=== PATIENT | male | born 1990 | race Two or more races ===

== ENCOUNTER 2016-11-16 22:08 | Emergency (ER) | payer SELFPAY ==
[~2016-11-16] VITALS: Ht 172.7 cm; Wt 68.0 kg
[2016-11-16 22:38] LABS: BASOPHILS # (AUTO) 0.1 /CMM (0.0-0.2); BASOPHILS % (AUTO) 1.4 % (0.0-2.0); DIFF TOTAL % 100 %; EOSINOPHILS # (AUTO) 0.1 /CMM (0.0-0.7); EOSINOPHILS % (AUTO) 3.5 % (0.0-6.0); HEMATOCRIT 42 % (39-51); LYMPHOCYTES # (AUTO) 1.9 /CMM (0.8-4.8); LYMPHOCYTES % (AUTO) 49.8 % (20.0-44.0); MEAN CORPUSCULAR HEMOGLOBIN 30 PG (26.0-33.0); MEAN CORPUSCULAR HGB CONC 33 g/dl (31.0-36.0); MEAN CORPUSCULAR VOLUME 89 fL (80-96); MONOCYTES # (AUTO) 0.6 /CMM (0.1-1.30); MONOCYTES % (AUTO) 15.1 % (2.0-12.0); NEUTROPHILS # (AUTO) 1.2 /CMM (1.8-8.9); NEUTROPHILS % (AUTO) 30.2 % (43.0-81.0); PLATELET COUNT (AUTO) 211 /CMM (150-450); RED BLOOD CELL COUNT(AUTO) 4.74 MIL/uL (4.5-6.0); WHITE BLOOD COUNT (AUTO) 3.9 K/uL (4.3-11.0)
[2016-11-16 22:46] LABS: ANION GAP 7 (5-14); CALCIUM, SERUM 8.9 mg/dL (8.5-10.1); CARBON DIOXIDE 32 mmol/L (21-32); CHLORIDE 103 mmol/L (98-107); GFR 90 mL/min (>60); GLUCOSE 76 mg/dL (74-106); POTASSIUM 3.8 mmol/L (3.5-5.1); SODIUM SERUM 138 mmol/L (136-145); UREA NITROGEN, BLOOD 15 mg/dL (7-18)
[2016-11-16 22:53] LABS: ALANINE AMINOTRANSFERASE 25 U/L (12-78); ALBUMIN 3.9 g/dL (3.4-5.0); ASPARTATE AMINOTRANSFERASE 18 U/L (15-37); BILIRUBIN,DIRECT 0.2 mg/dL (0.0-0.2); BILIRUBIN,TOTAL 0.7 mg/dL (0.2-1.0); INDIRECT BILIRUBIN 0.5 mg/dL (0.0-1.1); TOTAL PROTEIN, SERUM 6.9 g/dL (6.4-8.2)
[2016-11-16 22:53] LABS: ADD UA MICROSCOPIC YES; KETONES,URINE TRACE (NEGATIVE); LEUKOCYTE ESTERASE ,URINE NEGATIVE (NEGATIVE)
[2016-11-16 22:54] LABS: ACETAMINOPHEN 0 ug/ml (10-30); SALICYLATE 2.1 mg/dL (2.8-20.0)
[2016-11-16 22:55] LABS: PHENCYCLIDINE SCREEN,URINE NEGATIVE (NEGATIVE)
[2016-11-16 22:58] LABS: CANNABINOID, URINE POSITIVE (NEGATIVE)
[2016-11-16 22:59] LABS: ADD URINE CULTURE NO; RBC,URINE NONE SEEN /HPF (0-2)
[2016-11-17 01:35] LABS: BAND % (MANUAL) 2 % (0.0-5.0); BASOPHILS % (MANUAL) 0 % (0.0-2.0); EOSINOPHILS % (MANUAL) 7 % (0-4); LYMPHOCYTES % (MANUAL) 50 % (16-48); PLATELET ESTIMATE ADEQUATE; RBC MORPHOLOGY COMMENT NORMAL RBC MORPH
[2016-11-17 06:53] VITALS: BP 102/68
== END 2016-11-17 06:54 | disposition home or self-care (01) ==
LOC: ER 22:10
DX: F19.10 Other psychoactive substance abuse, uncomplicated (principal)
CPT/HCPCS: 36415; 80048-TC; 80076-TC; 80305; 81000-TC; 85025-TC; A4606; G6038-TC; G6039-TC; G6040-TC; Z7610

== ENCOUNTER 2016-11-20 13:16 | Emergency (ER) | payer SELFPAY ==
[~2016-11-20] VITALS: Ht 172.7 cm; Wt 56.7 kg
[2016-11-20] MEDS ORDERED: IV NS 0.9% 1,000 ML BAG IV ONE (13:30)
[2016-11-20 13:45] LABS: BASOPHILS % (AUTO) 0.8 % (0.0-2.0); DIFF TOTAL % 100 %; EOSINOPHILS % (AUTO) 0.2 % (0.0-6.0); HEMATOCRIT 46 % (39-51); HEMOGLOBIN 15.1 g/dL (13.5-17.5); LYMPHOCYTES # (AUTO) 0.8 /CMM (0.8-4.8); LYMPHOCYTES % (AUTO) 20.7 % (20.0-44.0); MEAN CORPUSCULAR HEMOGLOBIN 30 PG (26.0-33.0); MEAN CORPUSCULAR HGB CONC 33 g/dl (31.0-36.0); MEAN CORPUSCULAR VOLUME 89 fL (80-96); MONOCYTES # (AUTO) 0.2 /CMM (0.1-1.30); MONOCYTES % (AUTO) 3.9 % (2.0-12.0); NEUTROPHILS # (AUTO) 3.1 /CMM (1.8-8.9); NEUTROPHILS % (AUTO) 74.4 % (43.0-81.0); PLATELET COUNT (AUTO) 225 /CMM (150-450); RED BLOOD CELL COUNT(AUTO) 5.13 MIL/uL (4.5-6.0); WHITE BLOOD COUNT (AUTO) 4.1 K/uL (4.3-11.0)
[2016-11-20 13:53] LABS: ANION GAP 25 (5-14); CALCIUM, SERUM 9.5 mg/dL (8.5-10.1); CARBON DIOXIDE 18 mmol/L (21-32); CHLORIDE 103 mmol/L (98-107); CREATININE 1.4 mg/dL (0.6-1.3); GFR 61 mL/min (>60); GLUCOSE 153 mg/dL (74-106); POTASSIUM 4.3 mmol/L (3.5-5.1); SODIUM SERUM 141 mmol/L (136-145); UREA NITROGEN, BLOOD 15 mg/dL (7-18)
[2016-11-20 14:03] LABS: ALANINE AMINOTRANSFERASE 23 U/L (12-78); ALBUMIN 4.2 g/dL (3.4-5.0); ASPARTATE AMINOTRANSFERASE 19 U/L (15-37); BILIRUBIN,DIRECT 0.1 mg/dL (0.0-0.2); BILIRUBIN,TOTAL 0.5 mg/dL (0.2-1.0); INDIRECT BILIRUBIN 0.4 mg/dL (0.0-1.1); SALICYLATE 3.2 mg/dL (2.8-20.0); TOTAL PROTEIN, SERUM 7.5 g/dL (6.4-8.2)
[2016-11-20 14:05] LABS: ACETAMINOPHEN 0 ug/ml (10-30)
[2016-11-20] MEDS ORDERED: IV SET PRIMARY 1 EA INFUS.SET MC ONE (14:21)
[2016-11-20] MEDS ORDERED: IV NS 0.9% 1,000 ML ONE (14:21)
[2016-11-20 14:56] VITALS: BP 145/45
== END 2016-11-20 14:57 | disposition home or self-care (01) ==
LOC: ER 13:19
DX: S00.83XA Contusion of other part of head, initial encounter (principal); W18.30XA Fall on same level, unspecified, initial encounter; Y93.89 Activity, other specified; Y92.89 Other specified places as the place of occurrence of the external cause; Y99.8 Other external cause status
CPT/HCPCS: 36415; 70450-TC; 72125-TC; 80048-TC; 80076-TC; 85025-TC; A4606; A6402; G6038-TC; G6039-TC; G6040-TC; J7030; Z7610

== ENCOUNTER 2017-05-20 09:06 | Emergency (ER) | payer SELFPAY ==
[~2017-05-20] VITALS: Ht 167.6 cm; Wt 68.0 kg
--- NOTE | 2017-05-20 09:06 | NUR ---
BBRA 102 FROM MALL BENCH FOUND ALOC, UNKNOWN DRUG USE. GIVEN NARCAN IN FIELD. PT IS NOT ALERT, RESPONDS TO PAINFUL STIMULI, VSS. PT PLACED IN GOWN AND MONITOR. DR SINCLAIR AT BEDSIDE FOR EVAL.
[2017-05-20] MEDS ORDERED: AMMONIA NASAL INHALATION 1 EA PACK NAS ONE ×2 (09:13→09:30)
[2017-05-20] MEDS ORDERED: NALOXONE PREFILLED SYRINGE 2 MG/2 ML SYRINGE ONE (09:15)
[2017-05-20] MEDS ORDERED: NALOXONE HCL 0.4 MG/ML AMPUL IV ONE (09:30)
[2017-05-20] MEDS ORDERED: IV NS 0.9% 1,000 ML BAG IV ONE (09:30)
[2017-05-20 09:34] LABS: BASOPHILS # (AUTO) 0.1 /CMM (0.0-0.2); BASOPHILS % (AUTO) 0.7 % (0.0-2.0); EOSINOPHILS # (AUTO) 0.1 /CMM (0.0-0.7); EOSINOPHILS % (AUTO) 0.9 % (0.0-6.0); HEMATOCRIT 46 % (39-51); HEMOGLOBIN 14.8 g/dL (13.5-17.5); LYMPHOCYTES # (AUTO) 1.4 /CMM (0.8-4.8); LYMPHOCYTES % (AUTO) 18.4 % (20.0-44.0); MEAN CORPUSCULAR HEMOGLOBIN 29 PG (26.0-33.0); MEAN CORPUSCULAR HGB CONC 33 g/dl (31.0-36.0); MEAN CORPUSCULAR VOLUME 89 fL (80-96); MONOCYTES # (AUTO) 0.7 /CMM (0.1-1.30); MONOCYTES % (AUTO) 10.1 % (2.0-12.0); NEUTROPHILS # (AUTO) 5.1 /CMM (1.8-8.9); NEUTROPHILS % (AUTO) 69.9 % (43.0-81.0); PLATELET COUNT (AUTO) 238 /CMM (150-450); RDW COEFFICIENT OF VARIATION 13.2 (11.5-15.0); RED BLOOD CELL COUNT(AUTO) 5.14 MIL/uL (4.5-6.0); WHITE BLOOD COUNT (AUTO) 7.4 K/uL (4.3-11.0)
[2017-05-20 09:37] LABS: APPEARANCE,URINE CLEAR (CLEAR); BILIRUBIN,URINE 1+ (NEGATIVE); BLOOD, URINE 1+ Ery/uL (NEGATIVE); COLOR,URINE DARK YELLO (YELLOW); KETONES,URINE TRACE (NEGATIVE); LEUKOCYTE ESTERASE ,URINE NEGATIVE (NEGATIVE); NITRITE, URINE NEGATIVE (NEGATIVE); PH,URINE 5.5 (5.0-8.0); PROTEIN,URINE NEGATIVE (NEGATIVE); UGLUCOSE NEGATIVE (NEGATIVE); UROBILINOGEN,URINE 0.2 EU/dL (0.2)
[2017-05-20 09:43] LABS: BACTERIA,URINE Rare /HPF (None Seen); WBC,URINE NONE SEEN /HPF (0-3)
[2017-05-20 09:44] LABS: CALCIUM, SERUM 9.1 mg/dL (8.5-10.1); CARBON DIOXIDE 26 mmol/L (21-32); CHLORIDE 105 mmol/L (98-107); GLUCOSE 98 mg/dL (74-106); POTASSIUM 4.3 mmol/L (3.5-5.1); SODIUM SERUM 141 mmol/L (136-145); UREA NITROGEN, BLOOD 18 mg/dL (7-18)
[2017-05-20 09:49] LABS: MUCUS,URINE Moderate /LPF (None Seen); SQUAMOUS EPITHELIAL CELL,UR None Seen /HPF (None Seen)
[2017-05-20 09:50] LABS: ALANINE AMINOTRANSFERASE 28 U/L (12-78); ALBUMIN 4.2 g/dL (3.4-5.0); ALCOHOL, BLOOD < 3 mg/dL (0-0); ALKALINE PHOSPHATASE 67 U/L (46-116); ASPARTATE AMINOTRANSFERASE 25 U/L (15-37); BILIRUBIN,DIRECT 0.1 mg/dL (0.0-0.2); SALICYLATE 3.5 mg/dL (2.8-20.0)
[2017-05-20 09:51] LABS: ACETAMINOPHEN 0 ug/ml (10-30)
--- NOTE | 2017-05-20 12:00 | NUR ---
REMOVED RESTRAINTS PT STABLE NOW NOT AGITATED.
--- NOTE | 2017-05-20 12:54 | NUR ---
CALLED [facility] CLINICIAN FOR EVAL ETA 1 HOUR
[2017-05-20 16:40] VITALS: BP 101/71
--- NOTE | 2017-05-20 16:40 | NUR ---
Patient discharged to home in stable condition. Written and verbal after care instructions given. Patient verbalizes understanding of instruction.
--- NOTE | 2017-05-20 16:40 | NUR ---
IV removed. Catheter intact and site benign. Pressure and 4x4 applied to site. No bleeding noted.
== END 2017-05-20 16:41 | disposition home or self-care (01) ==
LOC: ER 09:08
DX: R41.82 Altered mental status, unspecified (principal); F11.10 Opioid abuse, uncomplicated; F15.10 Other stimulant abuse, uncomplicated; F12.10 Cannabis abuse, uncomplicated; F19.10 Other psychoactive substance abuse, uncomplicated; R79.89 Other specified abnormal findings of blood chemistry
CPT/HCPCS: 36415; 70450-TC; 71010-TC; 80048-TC; 80076-TC; 80305; 81000-TC; 82962-TC; 85025-TC; A4606; G0480; J2310; J7030; Z7610

== ENCOUNTER 2018-12-30 10:53 | Emergency (ER) | payer OTHER ==
[~2018-12-30] VITALS: Ht 175.3 cm; Wt 65.8 kg
[2018-12-30 10:56] VITALS: BP 115/88
--- NOTE | 2018-12-30 11:15 | NUR ---
MELISSA received a call from NOY García requesting for social service consult for the pt. for homelessness. Pt. is a 28 year old male who was brought in by rescue ambulance from [facility] for an overdose. MELISSA met with pt. bedside with NOY García. Pt. is alert and oriented x 3. Pt. is very fidgety and kept putting his belongings in his bag. Pt. was cooperative with SW during the assessment. Pt. is ambulatory. Pt. states he is homeless and has been couch surfing at friend's apartments. Pt. is a heroin user and last used this morning. Pt. denies any other drug use. SW offered pt. drug resources and homeless correction resources, however pt. declined all resources. Pt. appeared to be in a hurry to leave. Pt. was given a sandwich and juice. Pt. informed SW he is having a friend pick him up. Homeless Patient Waiver form was signed by the pt. and placed in pt's chart. No other social service needs are requested at this time.
--- NOTE | 2018-12-30 11:17 | NUR ---
Patient given written and verbal discharge instructions. Patient verbalizes understanding of instructions. Patient is ambulatory with steady gait. Refuses offer of homeless resources. Patient discharged to home in stable condition. Patient verbalizes understanding of instruction.
== END 2018-12-30 11:20 | disposition home or self-care (01) ==
LOC: ER 10:53
DX: F19.10 Other psychoactive substance abuse, uncomplicated (principal)

== ENCOUNTER 2019-04-20 07:35 | Emergency (ER) | payer OTHER ==
[~2019-04-20] VITALS: Ht 167.6 cm; Wt 63.5 kg
[2019-04-20] MEDS ORDERED: DEXAMETHASONE SOD PHOSPHATE 10 MG/ML VIAL IM ONE (08:00)
[2019-04-20] MEDS ORDERED: DEXAMETHASONE SOD PHOSPHATE 10 MG/ML VIAL ONE (08:01)
[2019-04-20 09:21] VITALS: BP 113/67
== END 2019-04-20 09:22 | disposition home or self-care (01) ==
LOC: ER 07:35
DX: J02.9 Acute pharyngitis, unspecified (principal); R09.82 Postnasal drip
CPT/HCPCS: 87070; 87880; 96372; 99283; J1100; 86403-TC

== ENCOUNTER 2021-03-04 08:15 | Emergency (ER) | payer OTHER ==
[~2021-03-04] VITALS: Ht 167.6 cm; Wt 68.0 kg
[2021-03-04 08:19] VITALS: BP 120/68
--- NOTE | 2021-03-04 08:26 | NUR ---
Pt now Awake and Alert - refuses any Intervention at this time states "what does it matter if I was sleeping in a bench. Im homeless got to sleep somewhere." Denies any drug/alcohol use. Appropriate/responsive. Conversant and follows commands. GCS-15 moves all extremities purposefully Ambulatory Gait steady. Dr Downs saw and examined pt. Eloped prior to aftercare instructions
== END 2021-03-04 08:30 | disposition home or self-care (01) ==
LOC: ER 08:20
DX: Z00.8 Encounter for other general examination (principal)

== ENCOUNTER 2021-05-16 04:56 | Emergency (ER) | payer OTHER ==
[~2021-05-16] VITALS: Ht 167.6 cm; Wt 67.1 kg
--- NOTE | 2021-05-16 05:20 | NUR ---
PT AAOX4. BIBRA FOUND ON STREETS ON THE FLOOR "ALTETED." PLACED IN BED 11 ON MONITOR AND PULSE OX. AWAITING ER MD FOR EVAL AND ORDERS. PT AWAKE.
--- NOTE | 2021-05-16 05:35 | NUR ---
BROUGHT TO CT AND BACK
[2021-05-16] MEDS ORDERED: LIDOCAINE 2% JEL UROJET 10 ML MM ONE (06:09)
--- NOTE | 2021-05-16 06:17 | NUR ---
Manufacturing Coordinator at bedside.
--- NOTE | 2021-05-16 06:17 | NUR ---
FR butler catheter inserted per sterile protocal. Urine collected, sent to lab.
[2021-05-16 06:35] LABS: BASOPHILS % (AUTO) 0.8 % (0.0-2.0); EOSINOPHILS % (AUTO) 1.5 % (0.0-6.0); HEMATOCRIT 37 % (39-51); HEMOGLOBIN 12.4 g/dL (13.5-17.5); LYMPHOCYTES # (AUTO) 1.6 K/uL (0.8-4.8); LYMPHOCYTES % (AUTO) 40.9 % (20.0-44.0); MEAN CORPUSCULAR HGB CONC 33 g/dl (31.0-36.0); MEAN CORPUSCULAR VOLUME 88 fL (80-96); MONOCYTES # (AUTO) 0.3 K/uL (0.1-1.30); MONOCYTES % (AUTO) 8.2 % (2.0-12.0); NEUTROPHILS # (AUTO) 1.9 K/uL (1.8-8.9); NEUTROPHILS % (AUTO) 48.6 % (43.0-81.0); PLATELET COUNT (AUTO) 260 K/uL (150-450); RED BLOOD CELL COUNT(AUTO) 4.19 MIL/uL (4.5-6.0); WHITE BLOOD COUNT (AUTO) 3.9 K/uL (4.3-11.0)
[2021-05-16 06:37] LABS: BILIRUBIN,URINE NEGATIVE (NEGATIVE); COLOR,URINE YELLOW (YELLOW); LEUKOCYTE ESTERASE ,URINE NEGATIVE (NEGATIVE); NITRITE, URINE NEGATIVE (NEGATIVE); PROTEIN,URINE NEGATIVE (NEGATIVE); UGLUCOSE NEGATIVE (NEGATIVE); UROBILINOGEN,URINE 0.2 EU/dL (0.2)
[2021-05-16 06:51] LABS: ACETAMINOPHEN 0 ug/ml (10-30); ALANINE AMINOTRANSFERASE 28 U/L (12-78); ALBUMIN 3.2 g/dL (3.4-5.0); ALCOHOL, BLOOD < 3 mg/dL (0-0); ALKALINE PHOSPHATASE 61 U/L (46-116); ASPARTATE AMINOTRANSFERASE 25 U/L (15-37); BILIRUBIN,DIRECT 0.1 mg/dL (0.0-0.2); BILIRUBIN,TOTAL 0.3 mg/dL (0.2-1.0); CALCIUM, SERUM 8.5 mg/dL (8.5-10.1); CARBON DIOXIDE 28 mmol/L (21-32); CHLORIDE 105 mmol/L (98-107); CREATININE 0.9 mg/dL (0.6-1.3); GLUCOSE 95 mg/dL (74-106); POTASSIUM 3.6 mmol/L (3.5-5.1); SODIUM SERUM 143 mmol/L (136-145); TOTAL PROTEIN, SERUM 6.7 g/dL (6.4-8.2); UREA NITROGEN, BLOOD 18 mg/dL (7-18)
--- NOTE | 2021-05-16 07:24 | NUR ---
ASSESSED PT ON BED ASLEEP EASILY AROUSABLE, NOT IN RESPIRATORY DISTRESS, V/S STABLE, KEPT RESTED AND COMFORTABLE. WILL CONTINUE TO MONITOR.
--- NOTE | 2021-05-16 11:05 | NUR ---
"Contingents Supervisor consult: student services counselor consult requested for homelessness. Patient is a 30-year-old, male. SW met with patient at his bedside in the emergency department. Patient was alert and oriented x3. Patient was unable to recall the situation which brought him to the hospital. Patient was calm and resting. Per chart, patient was brought in by ambulance from the streets on 05/16/21 and presented altered. Patient stated that he is currently homeless and has been homeless for the last 5 years. Patient reported that he has been living on the street. Patient stated that he has some support from his friends and family. Patient stated that he currently has no source of income. SW assessed patients history of substance use and patient reported no history or current substance use. SW assessed patients history of mental illness and patient denied history. Patient denied suicidal or homicidal ideation. SW offered the patient homeless resources. Patient accepted the resources and thanked SW. Patient signed the homeless waiver and SW filed waiver in the patients chart. SW discussed discharge plans with the patient. Patient stated he will return to his prior living arrangement on the street. PLAN: Patient stated he will return to his prior living arrangement on the street. No further SS intervention at this time, however, SW will remain available as needed. RESOURCES: Year-round shelters: [place] [address] [phone] ; [facility] [place] [address] [place] [address]; [facility] [facility] [address] SPA 4 | [facility] [place] Provider: First to Serve Address: [address], [address] # of Beds: 48 Population Served: [facility] Provider: First to Serve Address: [address] [facility], [address] # of Beds: 73 Population Served: [facility] 6 | [facility] Provider: Home at Last Address: [address] [facility], [address] # of Beds: 63 Population Served: [facility] 3 | [facility] Provider: [facility] [place] Address: [address] [place], [place] [address] # of Beds: 75 Population Served: [place] SPA 8 | [facility] Provider: [facility] [place] Address: [address] [facility], [address] # of Beds: 80 Population Served: [place] SPA 1 | [facility] Provider: [facility] [place] Address: [address] [place] [address], [address] # of Beds: 85 Population Served: [place] SPA 2 | [facility] Provider: [facility] Address: Confidential (please call for location) # of Beds: 52 Population Served: [facility] S[facility] 4 | [facility] Provider: Ja[facility] Address: [address] [place] [address] # of Beds: 49 Population Served: [facility] Provider: First To Serve Address: [address] [place] [address] # of Beds: 27 Population Served: [facility] Hygiene: [facility]: [address] [facility] ; [place] [facility] [address] [facility] ; [facility] [address] [facility] . Food Resources: [place] [facility] at [facility]- [address] [facility]; Meet Each Need with [facility] ([facility]) [address] [facility]; [facility] [address] [facility]; [facility] [address]658 [facility]. Mental Health resources provided: [facility] [address] [place] [address] ; [facility] [place] [address] [facility] [address], [place] [address] ; [facility] [address] [facility] [place] [address] ; [facility] [address] [place], [place] [address] Healthcare Clinics: [facility] [address] [facility] [address] [place]. [place] ; [facility] [address] [facility] [address] [place] [address]; [facility] [address] [facility] [phone] Counseling--Outpatient [facility] [address] [facility] [address] [place], [place] [address] (Specializes in in-depth psychotherapy for emotional distress: anxiety, depression, interpersonal conflicts, life transitions, childhood abuse) PSYCHIATRIC OUTPATIENT SERVICES [facility] Partial Hospitalization and Intensive Outpatient Program (Managed Care and [place] Only) [address] [facility] 418478 [facility] Partial Hospitalization and Outpatient Program [address] [facility] [place], [place] [id number] [facility] Partial Hospitalization and Outpatient Program [address] [facility] [place], [place] [id number] [facility] Mental Health [facility] [address] [facility]. [address] [place], [place] [address] [facility] Partial Hospitalization and Outpatient Program [address] [place], [place] [phone] Substance use resources provided included: [facility] Substance Abuse Self-Helpline (SAS) ; [facility] [address] [facility] [phone] ; [facility] [address] [facility] [address] ; [place] [address] [facility] [address] ; [facility] [address] [facility] [address] ; [facility]ically [facility] [address] [facility] [address] ; [facility]; [facility] [place]; [facility]; Alcoholics Anonymous -[facility]"
--- NOTE | 2021-05-16 13:12 | NUR ---
Patient given written and verbal discharge instructions. Patient verbalizes understanding of instructions. Patient is ambulatory with steady gait. Refuses offer of fpc placement. Patient given list of available shelters in surrounding area.
[2021-05-16 13:22] VITALS: BP 126/71
== END 2021-05-16 13:23 | disposition home or self-care (01) ==
LOC: ER 04:57
DX: F19.10 Other psychoactive substance abuse, uncomplicated (principal); T65.91XA Toxic effect of unspecified substance, accidental (unintentional), initial encounter; Y92.89 Other specified places as the place of occurrence of the external cause
CPT/HCPCS: 36415; 70450; 80048; 80076; 80143; 80307; 80320; 81003; 85025; 99284; J3490; G0480

== ENCOUNTER → 2022-02-15 | Emergency (ER) | payer OTHER ==
[~2022-02-15] VITALS: Ht 167.6 cm; Wt 61.7 kg
[2022-02-15 08:20] LABS: BASOPHILS # (AUTO) 0.1 K/uL (0.0-0.2); EOSINOPHILS % (AUTO) 1.8 % (0.0-6.0); HEMATOCRIT 44 % (39-51); HEMOGLOBIN 14.7 g/dL (13.5-17.5); LYMPHOCYTES # (AUTO) 2.3 K/uL (0.8-4.8); LYMPHOCYTES % (AUTO) 33.3 % (20.0-44.0); MEAN CORPUSCULAR HGB CONC 33 g/dl (31.0-36.0); MEAN CORPUSCULAR VOLUME 87 fL (80-96); MONOCYTES # (AUTO) 0.6 K/uL (0.1-1.30); MONOCYTES % (AUTO) 8.2 % (2.0-12.0); NEUTROPHILS # (AUTO) 3.8 K/uL (1.8-8.9); NEUTROPHILS % (AUTO) 55.7 % (43.0-81.0); PLATELET COUNT (AUTO) 279 K/uL (150-450); RED BLOOD CELL COUNT(AUTO) 5.08 MIL/uL (4.5-6.0); WHITE BLOOD COUNT (AUTO) 6.9 K/uL (4.3-11.0)
[2022-02-15 09:18] LABS: CARBON DIOXIDE 31 mmol/L (21-32); CHLORIDE 103 mmol/L (98-107); POTASSIUM 4.1 mmol/L (3.5-5.1); SODIUM SERUM 139 mmol/L (136-145)
[2022-02-15 09:28] LABS: ALANINE AMINOTRANSFERASE 29 U/L (12-78); ALCOHOL, BLOOD < 3 mg/dL (0-0); ALKALINE PHOSPHATASE 66 U/L (46-116); ASPARTATE AMINOTRANSFERASE 30 U/L (15-37); BILIRUBIN,TOTAL 0.4 mg/dL (0.2-1.0); CALCIUM, SERUM 9.3 mg/dL (8.5-10.1); CREATININE 1.1 mg/dL (0.6-1.3); GLUCOSE 93 mg/dL (74-106); TOTAL PROTEIN, SERUM 7.5 g/dL (6.4-8.2); UREA NITROGEN, BLOOD 22 mg/dL (7-18)
[2022-02-15 09:30] LABS: ACETAMINOPHEN 0 ug/ml (10-30)
--- NOTE | 2022-02-15 15:06 | NUR ---
SS Note: Pt. is a 31-year-old White male who demonstrates adequate insight to the reason for hospitalization. Per pt., he does not remember how he got to the hospital. Per EMR, pt. was found sleeping in a parking lot. Pt. was oriented x3, alert, and cooperative. During interview, pt. was capable of following directions and appeared unkempt. Pt.'s speech was at a normal rate and pt.'s mood was elevated. Pt. reported no hx of mental health, denies suicidal ideation, or homicidal ideation. Pt. denies auditory hallucinations, visual hallucinations, paranoia, or delusions. SW explored pt.'s living situation. Per pt., he has been homeless for 6 years. Pt. used to stay with his parents but got kicked out due to his drug use. He has been to shelters many times. Pt. stated that he uses Opioids for about 2 years and has never been to rehab. SW suggested rehab but pt. rejected. SW provided pt. with referrals to [facility] and [facility]. Pt. stated that he will present for intake at [facility] [pt. could not provide a day or time]. Per pt., he has not received prior treatment to Opioid dependence. Plan: SW provided available resources and pt. accepted. Resources Provided: [facility]: [address] [place] [address] Intake hours: 5:45am-9:00am, walk-ins Sunday, Sunday, [facility]: [address] [place] [address] Intake hours: 5:45am-12:30pm, Sunday and [facility]: [id number] [place] [id number] Intake hours: 8:00am-2:00pm, Sunday through Sunday
--- NOTE | 2022-02-15 15:10 | NUR ---
Patient discharged to home in stable condition. Written and verbal after care instructions given. Patient verbalizes understanding of instruction.
[2022-02-15 15:33] VITALS: BP 111/68
== END | disposition home or self-care (01) ==
LOC: ER 07:39
DX: R46.1 Bizarre personal appearance (principal)
CPT/HCPCS: 36415; 70450-TC; 80053-TC; 83605-TC; 85025-TC; G0480

== ENCOUNTER 2023-07-08 18:33 | Emergency (ER) | payer OTHER ==
[~2023-07-08] VITALS: Ht 167.6 cm; Wt 63.5 kg
[2023-07-08] MEDS ORDERED: diphenhydrAMINE HCL 50 MG/ML VIAL IM ONE (19:00)
[2023-07-08] MEDS ORDERED: OLANZAPINE 10 MG VIAL IM ONE ×2 (19:00→19:15)
[2023-07-08 19:13] LABS: BASOPHILS # (AUTO) 0.1 K/uL (0.0-0.2); BASOPHILS % (AUTO) 0.6 % (0.0-2.0); EOSINOPHILS # (AUTO) 0.2 K/uL (0.0-0.7); EOSINOPHILS % (AUTO) 2.2 % (0.0-6.0); HEMATOCRIT 39 % (39-51); HEMOGLOBIN 12.6 g/dL (13.5-17.5); LYMPHOCYTES # (AUTO) 3.5 K/uL (0.8-4.8); LYMPHOCYTES % (AUTO) 37.6 % (20.0-44.0); MEAN CORPUSCULAR HEMOGLOBIN 29 PG (26.0-33.0); MEAN CORPUSCULAR HGB CONC 32 g/dl (31.0-36.0); MEAN CORPUSCULAR VOLUME 88 fL (80-96); MONOCYTES # (AUTO) 1.1 K/uL (0.1-1.30); NEUTROPHILS # (AUTO) 4.4 K/uL (1.8-8.9); NEUTROPHILS % (AUTO) 47.6 % (43.0-81.0); PLATELET COUNT (AUTO) 317 K/uL (150-450); RED CELL DISTRIBUTION WIDTH 14.8 % (11.5-15.0); WHITE BLOOD COUNT (AUTO) 9.2 K/uL (4.3-11.0)
[2023-07-08] MEDS ORDERED: diphenhydrAMINE HCL 50 MG/ML VIAL ONE (19:15)
[2023-07-08 19:29] LABS: CALCIUM, SERUM 8.5 mg/dL (8.5-10.1); CARBON DIOXIDE 29 mmol/L (21-32); CHLORIDE 104 mmol/L (98-107); GLUCOSE 87 mg/dL (74-106); POTASSIUM 3.7 mmol/L (3.5-5.1); SODIUM SERUM 140 mmol/L (136-145); UREA NITROGEN, BLOOD 16 mg/dL (7-18)
[2023-07-08 19:38] LABS: ACETAMINOPHEN 0 ug/ml (10-30); ALANINE AMINOTRANSFERASE 27 U/L (12-78); ALBUMIN 3.4 g/dL (3.4-5.0); ALCOHOL, BLOOD < 3 mg/dL (0-10); ALKALINE PHOSPHATASE 75 U/L (46-116); ASPARTATE AMINOTRANSFERASE 16 U/L (15-37); BILIRUBIN,DIRECT 0.1 mg/dL (0.0-0.2); BILIRUBIN,TOTAL 0.3 mg/dL (0.2-1.0); SALICYLATE < 2.3 mg/dL (2.8-20.0); TOTAL PROTEIN, SERUM 7.2 g/dL (6.4-8.2)
[2023-07-08 21:07] LABS: APPEARANCE,URINE SLIGHTLY CLOUDY (CLEAR); BILIRUBIN,URINE NEGATIVE (NEGATIVE); BLOOD, URINE NEGATIVE Ery/uL (NEGATIVE); COLOR,URINE YELLOW (YELLOW); KETONES,URINE NEGATIVE (NEGATIVE); LEUKOCYTE ESTERASE ,URINE NEGATIVE (NEGATIVE); NITRITE, URINE NEGATIVE (NEGATIVE); PROTEIN,URINE TRACE mg/dl (NEGATIVE); UGLUCOSE NEGATIVE (NEGATIVE); UROBILINOGEN,URINE 0.2 EU/dL (0.2)
[2023-07-08 21:29] LABS: ADD URINE CULTURE NO; BACTERIA,URINE None seen /HPF (None Seen); MUCUS,URINE Moderate /LPF (None Seen); RBC,URINE 0-2 /HPF (0-2); WBC,URINE 0-2 /HPF (0-3)
[2023-07-08 21:45] LABS: BARBITURATE, URINE NEGATIVE (NEGATIVE); CANNABINOID, URINE NEGATIVE (NEGATIVE); COCCAINE, URINE NEGATIVE (NEGATIVE); OPIATE, URINE NEGATIVE (NEGATIVE); PHENCYCLIDINE SCREEN,URINE NEGATIVE (NEGATIVE)
[2023-07-08 21:46] LABS: AMPHETAMINE, URINE POSITIVE (NEGATIVE); BENZODIAZEPINE, URINE POSITIVE (NEGATIVE)
[2023-07-09 05:11] VITALS: BP 100/63; TEMP 98.1; O2SAT 99
== END 2023-07-09 05:12 | disposition home or self-care (01) ==
LOC: ER 18:35
DX: R46.1 Bizarre personal appearance (principal)
CPT/HCPCS: 99285; 96372 ×2; 85025; 80048; 80076; 81001; 36415; 82962; 80143; 80320; 80307; J1200; J3490; G0480